=== PATIENT | female | born 1970 | race Caucasian/White ===

== ENCOUNTER 2022-02-15 22:56 | Inpatient (IN) | payer MEDICAID, SELFPAY ==
[2022-02-15 22:58] VITALS: BP 133/108; PULSE 91; RESP 18; TEMP 36.9; O2SAT 94; BMI 29.5
[2022-02-15 23:39] LABS: Basophils # 0.1 10^3/uL (0.0-0.1); Basophils % 0.7 %; Eosinophils # 0.2 10^3/uL (0.0-0.8); Eosinophils % 2.3 %; Hematocrit 39.6 % (37.0-47.0); Hemoglobin 13.4 g/dL (11.5-15.3); Lymphocytes # 3.2 10^3/uL (0.8-4.8); Lymphocytes % 38.2 %; Mean Corpuscular HGB Conc 33.8 g/dL (30.0-36.0); Mean Corpuscular Hemoglobin 33.9 pg (28.0-34.0); Mean Corpuscular Volume 100.3 fl (81-99); Mean Platelet Volume 10.1 fL (7.4-10.4); Monocytes # 0.8 10^3/uL (0.2-0.9); Monocytes % 9.6 %; Neutrophils # 4.04 10^3/uL (1.8-7.7); Nucleated Red Blood Cells % 0 %; Platelet Count 249 10^3/cmm (130-400); Red Blood Count 3.95 10^6/uL (4.1-5.3); Red Cell Distribution Width 12.6 % (12.1-15.1); White Blood Count 8.3 10^3/uL (4.0-10.0)
[2022-02-15 23:58] LABS: Chloride 103 mmol/L (98-107); Potassium 3.9 mmol/L (3.5-5.1); Sodium 139 mmol/L (136-145)
[2022-02-15 23:59] LABS: Acetaminophen < 5.0 ug/mL (10-30)
[2022-02-16 00:11] LABS: Alanine Aminotransferase 21 U/L (0-33); Albumin Level 4.8 g/dL (3.5-5.2); Alkaline Phosphatase 50 U/L (35-105); Anion Gap 14.9 (5-19); Aspartate Amino Transferase 19 U/L (0-32); Blood Urea Nitrogen 13 mg/dL (6-20); Calcium 9.3 mg/dL (8.5-10.5); Carbon Dioxide 25 mmol/L (22-29); Globulin 2.6 g/dL (1.3-4.6); Glomerular Filtration Rate 88.6 mL/min (90-130); Glucose 101 mg/dL (65-115); Osmolality Calculated 288 mOsm/kg (285-295); Total Bilirubin 0.5 mg/dL (0.15-1.2); Total Protein 7.4 g/dL (6.6-8.7)
[2022-02-16 00:13] LABS: Alcohol Level < 10 mg/dL (0-10); Salicylate < 0.3 mg/dL (3-10)
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
[2022-02-16] MEDS: nicotine 21 mg Patch 1 PATCH TRANSDERMA (01:47)
[2022-02-16] MEDS: OLANZapine 10 mg TABLET 20 MG PO (01:48)
[2022-02-16 02:00] LABS: Add Urine Microscopic? NO; Charge for UA Resulting for Rev
[2022-02-16 02:02] LABS: HCG Qualitative Urine. Negative (Negative)
[2022-02-16 02:03] LABS: Bilirubin Urine Neg (Negative); Blood Urine Neg (Negative); Glucose Urine UA Norm (Normal); Ketones Urine Negative (Negative); Leukocyte Esterase Urine Negative (Negative); Nitrate Urine Negative (Negative); Protein Urine Neg (Negative); Specific Gravity, Urine 1.015 (1.005-1.030); Urine Appearance Clear (CLEAR); Urine Color Yellow (Yellow); Urobilinogen Urine 1 mg/dL (Negative); pH Urine 6 (5-7)
[2022-02-16 02:11] LABS: Amphetamines Screen Urine Negative (Negative); Barbiturates Screen Urine Negative (Negative); Benzodiazepines Screen Urine Negative (Negative); Cocaine Screen Urine Negative (Negative); Opiate Screen Urine Negative (Negative); PCP Screen Urine Negative (Negative); THC Screen Urine Negative (Negative)
[2022-02-16 03:37] LABS: Valproic Acid Level 5.9 ug/mL (50-100)
[2022-02-16 04:54] VITALS: BP 118/65; PULSE 78; RESP 16; O2SAT 98
[2022-02-16 05:24] VITALS: PULSE 83; RESP 16; O2SAT 96
[2022-02-16] MEDS: nicotine 2 mg Gum BUCCAL ×3 (05:53→16:17)
[2022-02-16 06:00] VITALS: BP 118/65; PULSE 85; RESP 16; O2SAT 96
[2022-02-16] MEDS: fluoxetine 20 mg Capsule 40 MG PO (09:46)
[2022-02-16] MEDS: benztropine 1 mg Tablet 0.5 MG PO ×2 (09:46→17:49)
[2022-02-16] MEDS: divalproex DR 500 mg Tablet PO (09:46)
[2022-02-16] MEDS: risperiDONE 1 mg Tablet PO ×2 (09:46→17:48)
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
[2022-02-16 14:00] VITALS: BP 115/82; PULSE 105; RESP 18; TEMP 36.6; O2SAT 96
[2022-02-16] MEDS: haloperidol 5 mg Tablet PO (16:15)
[2022-02-16] MEDS: divalproex DR 500 mg Tablet 1000 MG PO (20:18)
[2022-02-16] MEDS: trazodone 100 mg Tablet PO (20:18)
[2022-02-16 20:23] VITALS: RESP 17
[2022-02-17 06:00] VITALS: BP 138/90; PULSE 102; RESP 22; TEMP 37.3; O2SAT 94
[2022-02-17] MEDS: nicotine 2 mg Gum BUCCAL ×2 (06:38→08:23)
[2022-02-17] MEDS: acetaminophen 325 mg Tablet 650 MG PO (06:38)
[2022-02-17] MEDS: hyDROXYzine 25 mg Capsule 50 MG PO (06:38)
[2022-02-17] MEDS: fluoxetine 20 mg Capsule 40 MG PO (08:21)
[2022-02-17] MEDS: risperiDONE 1 mg Tablet PO ×2 (08:21→20:26)
[2022-02-17] MEDS: divalproex DR 500 mg Tablet PO (08:21)
[2022-02-17] MEDS: benztropine 1 mg Tablet 0.5 MG PO ×2 (08:21→20:26)
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
[2022-02-17] MEDS: OLANZapine 5 mg ODT PO (09:09)
--- NOTE | 2022-02-17 09:10 | PC.NURSE ---
PRN ZYPREXA ZYDIS 5 MG GIVEN PO PER PT C/O STATED ANXIETY, SPECIFICALLY REQUESTING THE PILL THAT GOES ON YOUR TONGUE
[2022-02-17 13:50] VITALS: BP 83/58; PULSE 85; RESP 19; TEMP 36.9; O2SAT 97
[2022-02-17] MEDS: divalproex DR 500 mg Tablet 1000 MG PO (20:25)
[2022-02-17] MEDS: trazodone 100 mg Tablet PO (20:25)
[2022-02-17 20:29] VITALS: BP 103/66; PULSE 84; RESP 18; TEMP 37.3; O2SAT 93
[2022-02-18 06:00] VITALS: BP 107/75; PULSE 93; RESP 18; TEMP 37.1; O2SAT 93
[2022-02-18] MEDS: fluoxetine 20 mg Capsule 40 MG PO (08:33)
[2022-02-18] MEDS: risperiDONE 1 mg Tablet PO ×2 (08:33→21:20)
[2022-02-18] MEDS: benztropine 1 mg Tablet 0.5 MG PO ×2 (08:33→21:22)
[2022-02-18] MEDS: divalproex DR 500 mg Tablet PO (08:33)
[2022-02-18] MEDS: acetaminophen 325 mg Tablet 650 MG PO ×2 (08:37→12:47)
[2022-02-18] MEDS: OLANZapine 5 mg ODT PO ×2 (09:21→14:37)
[2022-02-18] MEDS: nicotine 2 mg Gum BUCCAL ×3 (09:31→14:52)
--- NOTE | 2022-02-18 10:08 | PC.NURSE ---
PRN MEDICATIONS PT REQUESTED TYLENOL FOR BACK AND SIDE PAIN, RATING PAIN A 10 ON THE INTENSITY SCALE. TYLENOL WAS GIVEN AT 0837. AFTER OT CAME TO PT ROOM FOR EVAL PT CAME TO NURSES DESK WITH COMPLAINTS OF ANXIETY AFTER ANSWERING SEVERAL QUESTIONS. ZYDIS WAS GIVEN AY 0921. AT 0931 NICTOINE GUM WAS GIVEN. PT IS NOW RESTING IN BED.
[2022-02-18] MEDS: haloperidol 5 mg Tablet PO (12:46)
[2022-02-18 14:00] VITALS: BP 111/74; PULSE 93; RESP 18; TEMP 36.6; O2SAT 98
[2022-02-18] MEDS: hyDROXYzine 25 mg Capsule 50 MG PO (15:15)
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
[2022-02-18 20:52] VITALS: BP 103/67; PULSE 84; RESP 16; TEMP 37.9; O2SAT 93
[2022-02-18] MEDS: ibuprofen 600 mg Tablet PO (21:20)
[2022-02-18] MEDS: divalproex DR 500 mg Tablet 1000 MG PO (21:21)
[2022-02-18] MEDS: trazodone 100 mg Tablet PO (21:26)
[2022-02-19 06:00] VITALS: TEMP 37.1
[2022-02-19] MEDS: nicotine 2 mg Gum BUCCAL ×3 (08:53→18:46)
[2022-02-19] MEDS: fluoxetine 20 mg Capsule 40 MG PO (08:54)
[2022-02-19] MEDS: divalproex DR 500 mg Tablet PO (08:54)
[2022-02-19] MEDS: acetaminophen 325 mg Tablet 650 MG PO (08:54)
[2022-02-19] MEDS: risperiDONE 1 mg Tablet PO ×2 (08:54→18:51)
[2022-02-19] MEDS: benztropine 1 mg Tablet 0.5 MG PO ×2 (08:55→18:57)
[2022-02-19] MEDS: OLANZapine 5 mg ODT PO ×2 (09:57→16:31)
[2022-02-19] MEDS: hyDROXYzine 25 mg Capsule 50 MG PO ×2 (11:51→18:49)
--- NOTE | 2022-02-19 11:51 | PC.NURSE ---
PT CONTINUES TO RETURN TO NURSES STATION REQUESTING MEDICATION FOR ANXIETY. THIS MORNING PATIENT HAS RECEIVED ZYDIS AND VISTERIL.
[2022-02-19 14:00] VITALS: BP 127/84; PULSE 90; RESP 18; TEMP 36.6; O2SAT 94
[2022-02-19 14:24] VITALS: PULSE 90; RESP 18; O2SAT 97
[2022-02-19] MEDS: albuterol 8 gm MDI 2 PUFF INHALATION (14:25)
[2022-02-19] MEDS: ibuprofen 600 mg Tablet PO (18:46)
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
[2022-02-19] MEDS: divalproex DR 500 mg Tablet 1000 MG PO (18:49)
[2022-02-19] MEDS: trazodone 50 mg Tablet PO (18:49)
[2022-02-19 20:00] VITALS: BP 107/76; PULSE 74; RESP 18; TEMP 37.1; O2SAT 94
[2022-02-20 06:00] VITALS: BP 111/75; PULSE 74; RESP 18; TEMP 36.5; O2SAT 94
[2022-02-20] MEDS: fluoxetine 20 mg Capsule 40 MG PO (08:31)
[2022-02-20] MEDS: divalproex DR 500 mg Tablet PO (08:31)
[2022-02-20] MEDS: benztropine 1 mg Tablet 0.5 MG PO ×2 (08:31→20:17)
[2022-02-20] MEDS: risperiDONE 1 mg Tablet PO ×2 (08:33→20:16)
[2022-02-20] MEDS: nicotine 2 mg Gum BUCCAL ×3 (08:37→16:24)
[2022-02-20] MEDS: OLANZapine 5 mg ODT PO ×2 (09:13→15:08)
[2022-02-20] MEDS: hyDROXYzine 25 mg Capsule 50 MG PO ×2 (11:51→20:18)
[2022-02-20 14:00] VITALS: BP 112/83; PULSE 90; RESP 16; TEMP 36.6; O2SAT 99
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
[2022-02-20] MEDS: haloperidol 5 mg Tablet PO (16:24)
[2022-02-20] MEDS: benztropine 1 mg Tablet PO (16:26)
--- NOTE | 2022-02-20 18:04 | PC.NURSE ---
PT REQUESTED MULTIPLE MEDICATION FOR ANXIETY DURING THIS SHIFT INCLUDING HALDOL, ZYDIS, AND VISTERIL. PT ALSO REQUESTED AN EXTRA DOSE OF COGENTIN FOR TARDIVE DYSKENISIA.
[2022-02-20 19:59] VITALS: BP 106/68; PULSE 83; RESP 16; TEMP 36.8; O2SAT 95
[2022-02-20] MEDS: divalproex DR 500 mg Tablet 1000 MG PO (20:19)
[2022-02-20] MEDS: doxepin 10 mg Capsule PO (22:05)
[2022-02-20 22:20] VITALS: PULSE 88; RESP 18; O2SAT 98
[2022-02-20] MEDS: albuterol 8 gm MDI 2 PUFF INHALATION (22:20)
[2022-02-21 06:00] VITALS: RESP 16
[2022-02-21] MEDS: acetaminophen 325 mg Tablet 650 MG PO ×2 (06:53→17:02)
[2022-02-21] MEDS: hyDROXYzine 25 mg Capsule 50 MG PO ×2 (06:54→21:24)
--- NOTE | 2022-02-21 06:55 | PC.NURSE ---
Medicated patient with Tylenol and Vistaril.
[2022-02-21] MEDS: divalproex DR 500 mg Tablet PO (08:41)
[2022-02-21] MEDS: benztropine 1 mg Tablet PO (08:41)
[2022-02-21] MEDS: nicotine 2 mg Gum BUCCAL ×3 (08:41→17:02)
[2022-02-21] MEDS: fluoxetine 20 mg Capsule 40 MG PO (08:41)
[2022-02-21] MEDS: risperiDONE 1 mg Tablet PO ×2 (08:41→21:29)
[2022-02-21] MEDS: haloperidol 5 mg Tablet PO (09:00)
[2022-02-21] MEDS: ibuprofen 600 mg Tablet PO (09:00)
[2022-02-21 09:02] VITALS: PULSE 95; RESP 17; O2SAT 95
[2022-02-21] MEDS: albuterol 8 gm MDI 2 PUFF INHALATION ×2 (09:05→21:29)
--- NOTE | 2022-02-21 09:44 | PC.NURSE ---
PT IN ROOM, STATES, I'VE BEEN IN HERE WAITING ON YOU. PT APPEARS ANXIOUS AND IS IMPULSIVE. PT DENIES SI/HI AND AH AT THIS TIME. PT DOES ENDORSE HEARING VOICES BUT STATES, IT'S NOT WHAT YOU THINK, I'M NOT SCHIZOPHRENIC. I HAVE BECKY AND CAN READ PEOPLES THOUGHTS. PT DOES REPORT NECK PAIN 11/06, IBUPROPHEN 600 MG WAS GIVEN ORDERED. HALDOL 5 MG WAS GIVEN ORDERED. ALL QUESTGIONS ANSWERED AND SUPPORT WAS VOICED.
[2022-02-21] MEDS: OLANZapine 5 mg ODT PO ×2 (11:19→17:03)
--- NOTE | 2022-02-21 11:20 | PC.NURSE ---
PT C/O MODERATE ANXIETY. PT HAS HAD VISTARIL PRIOR TO SHIFT AND WAS GIVEN HALDOL WELL. PT CONTINUES TO STATE SHE IS ANXIOUS DUE TO GROUP. PT WAS GIVEN MG OF ZYDIS ORDERED FOR ANXIETY AND AGITATION.
[2022-02-21 14:00] VITALS: BP 117/80; PULSE 105; RESP 18; TEMP 36.6; O2SAT 96
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
[2022-02-21] MEDS: neomycin-poly-bacitracin oint 28 gm 1 APPLIC TOPICAL (18:54)
[2022-02-21 21:20] VITALS: PULSE 96; RESP 18; O2SAT 96
[2022-02-21] MEDS: doxepin 10 mg Capsule PO (21:25)
[2022-02-21] MEDS: divalproex DR 500 mg Tablet 1000 MG PO (21:26)
[2022-02-21] MEDS: benztropine 1 mg Tablet 0.5 MG PO (21:29)
[2022-02-21 22:00] VITALS: BP 115/85; PULSE 89; RESP 18; TEMP 36.7; O2SAT 96
--- NOTE | 2022-02-22 00:20 | PC.NURSE ---
PT CAME TO NURSES STATION AND REQUESTED SOMETHING FOR ANXIETY BECAUSE I CAN'T SLEEP. PATIENT INFORMED THAT SHE REFUSED HER TRAZODONE WHICH WAS A SCHEDULED MEDICATION AND WOULD HAVE HELPED WITH THE SLEEP. PATIENT REFUSED TRAZODONE AND REQUESTED SOMETHING FOR ANXIETY. THIS NURSE EXPLAINED TO PATIENT THAT SHE HAD SOMETHING FOR ANXIETY AND IF SHE WAS HAVING TROUBLE SLEEPING, THIS NURSE WOULD BE WILLING TO GIVE HER THE SCHEDULED MEDICATION THAT SHE REFUSED, BUT NOT ADDING OTHER MEDICATIONS ON TOP OF THE VISTARIL GIVEN SINCE SHE HAD NOT TAKEN HER SCHEDULED SLEEP MEDICATION.
[2022-02-22 06:00] VITALS: BP 123/78; PULSE 78; RESP 18; TEMP 36.7; O2SAT 95
[2022-02-22] MEDS: OLANZapine 5 mg ODT PO (06:30)
[2022-02-22] MEDS: nicotine 2 mg Gum BUCCAL ×3 (06:30→16:30)
[2022-02-22 07:49] VITALS: PULSE 91; RESP 17; O2SAT 97
[2022-02-22] MEDS: albuterol 8 gm MDI 2 PUFF INHALATION ×2 (07:50→23:01)
[2022-02-22] MEDS: divalproex DR 500 mg Tablet PO (09:01)
[2022-02-22] MEDS: hyDROXYzine 25 mg Capsule 50 MG PO ×2 (09:02→16:28)
[2022-02-22] MEDS: fluoxetine 20 mg Capsule 40 MG PO (09:02)
[2022-02-22] MEDS: risperiDONE 1 mg Tablet PO ×2 (09:02→21:07)
[2022-02-22] MEDS: benztropine 1 mg Tablet 0.5 MG PO ×2 (09:02→21:06)
[2022-02-22] MEDS: acetaminophen 325 mg Tablet 650 MG PO (09:02)
--- NOTE | 2022-02-22 09:03 | PC.NURSE ---
PRN VISTARIL 50 MG GIVEN PO PER PT C/O STATED ANXIETY. NO OUTWARD S/S OF ANXIETY NOTED
[2022-02-22 14:00] VITALS: BP 106/72; PULSE 86; RESP 18; TEMP 36.8; O2SAT 97
[2022-02-22] MEDS: haloperidol 5 mg Tablet PO (14:21)
--- NOTE | 2022-02-22 14:22 | PC.NURSE ---
PRN MEDICATION PT AT NURSES STATION, STATING SHE IS VERY ANXIOUS REQUESTING HALDOL BY NAME. THIS RN REVIEWED CHART AND NOTED THAT PT HAD RECEIVED VISTARIL AND ZYDIS ALREADY. HALDOL 5 MG WAS GIVEN ORDERED.
--- NOTE | 2022-02-22 16:31 | PC.NURSE ---
PRN VISTARIL 50 MG GIVEN PO PER PT C/O STATED ANXIETY, NO OUTWARD S/S OF ANXIETY NOTED
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
[2022-02-22 20:08] VITALS: BP 125/80; PULSE 88; RESP 20; TEMP 36.2; O2SAT 97
[2022-02-22] MEDS: divalproex DR 500 mg Tablet 1000 MG PO (21:07)
[2022-02-22] MEDS: trazodone 50 mg Tablet PO (21:08)
[2022-02-22] MEDS: doxepin 10 mg Capsule PO (21:51)
[2022-02-22 21:55] VITALS: PULSE 91; RESP 18; O2SAT 94
[2022-02-23 06:00] VITALS: BP 102/65; PULSE 91; RESP 20; TEMP 37.1; O2SAT 95
[2022-02-23 08:00] VITALS: PULSE 84; RESP 16; O2SAT 94
[2022-02-23] MEDS: albuterol 8 gm MDI 2 PUFF INHALATION ×2 (08:11→21:16)
[2022-02-23] MEDS: acetaminophen 325 mg Tablet 650 MG PO (09:26)
[2022-02-23] MEDS: risperiDONE 1 mg Tablet PO ×2 (09:26→20:44)
[2022-02-23] MEDS: benztropine 1 mg Tablet 0.5 MG PO ×2 (09:27→20:44)
[2022-02-23] MEDS: fluoxetine 20 mg Capsule 40 MG PO (09:27)
[2022-02-23] MEDS: divalproex DR 500 mg Tablet PO (09:27)
[2022-02-23] MEDS: hyDROXYzine 25 mg Capsule 50 MG PO (09:27)
[2022-02-23] MEDS: nicotine 2 mg Gum BUCCAL ×3 (09:27→16:37)
--- NOTE | 2022-02-23 10:54 | PC.NURSE ---
Nursing Assessment Patient at nurse's station requesting coffee. Brought her coffee and we walked to her room for assessment. She stated she slept very well last night. She denied any auditory or visual hallucinations and suicidal or homicidal ideations. She stated her shoulder and neck were sore at a 6. She also stated her last bowel movement was last night. I noticed her left eye looked very red and irritated. When asked about it she said her eye felt dry and sore. Will be getting saline eyedrops to see if that will help.
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
--- NOTE | 2022-02-23 11:16 | PC.NURSE ---
PT REQUESTED TYLENOL FOR BACK PAIN, SOMETHING FOR ANXIETY, AND NICOTINE GUM. PT WAS GIVEN VISTERIL FOR ANXIETY.
[2022-02-23] MEDS: OLANZapine 5 mg ODT PO (12:12)
[2022-02-23 14:00] VITALS: BP 130/80; PULSE 84; RESP 17; TEMP 36.6; O2SAT 96
[2022-02-23] MEDS: haloperidol 5 mg Tablet PO (14:24)
--- NOTE | 2022-02-23 14:24 | PC.NURSE ---
Addendum entered by Antonia Street LPN 02/23/22 14:57: THIS NURSE WENT TO PT ROOM TO CHECK ON THE PT BP WAS ELEVATED. BP BETTER AT THIS TIME BEING 130/80, PT IS RESTING IN BED. PT NOW STATES SHE NEEDS MEDICATION FOR HER NECK PAIN. RATES PAIN A 9 ON THE INTENSITY SCALE. PT REQUEST IBUPROFEN. Original Note: PT STOPS THIS NURSE IN THE HALLWAY STATING SHE HAS SEVERE ANXIETY AND NEEDS SOMETHING FOR IT. PT WAS GIVEN HALDOL
[2022-02-23] MEDS: ibuprofen 600 mg Tablet PO (14:57)
[2022-02-23 20:25] VITALS: BP 113/73; PULSE 98; RESP 18; TEMP 36.8; O2SAT 93
[2022-02-23] MEDS: divalproex DR 500 mg Tablet 1000 MG PO (20:44)
[2022-02-23] MEDS: trazodone 50 mg Tablet PO (20:44)
[2022-02-23] MEDS: doxepin 10 mg Capsule PO (20:45)
[2022-02-23 21:16] VITALS: PULSE 102; RESP 16; O2SAT 97
[2022-02-24 06:00] VITALS: BP 99/57; PULSE 98; RESP 16; TEMP 36.8; O2SAT 94
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
[2022-02-24 08:00] VITALS: PULSE 96; RESP 17; O2SAT 95
[2022-02-24] MEDS: albuterol 8 gm MDI 2 PUFF INHALATION ×2 (09:14→21:32)
[2022-02-24] MEDS: acetaminophen 325 mg Tablet 650 MG PO (09:17)
[2022-02-24] MEDS: nicotine 2 mg Gum BUCCAL ×2 (09:17→20:01)
[2022-02-24] MEDS: divalproex DR 500 mg Tablet PO (09:18)
[2022-02-24] MEDS: fluoxetine 20 mg Capsule 40 MG PO (09:18)
[2022-02-24] MEDS: benztropine 1 mg Tablet PO (09:18)
[2022-02-24] MEDS: risperiDONE 1 mg Tablet PO ×2 (09:18→19:51)
[2022-02-24] MEDS: OLANZapine 5 mg ODT PO (11:09)
[2022-02-24] MEDS: hyDROXYzine 25 mg Capsule 50 MG PO ×2 (11:13→20:01)
[2022-02-24] MEDS: benztropine 1 mg Tablet 0.5 MG PO ×2 (11:36→19:52)
[2022-02-24 14:00] VITALS: BP 115/78; PULSE 92; RESP 18; TEMP 36.8; O2SAT 95
[2022-02-24] MEDS: doxepin 10 mg Capsule PO (19:52)
[2022-02-24] MEDS: divalproex DR 500 mg Tablet 1000 MG PO (19:52)
[2022-02-24] MEDS: trazodone 50 mg Tablet PO (19:52)
--- NOTE | 2022-02-24 20:02 | PC.NURSE ---
Pt requested med for anxiety, Vistaril 50mg given po.
[2022-02-24 20:58] VITALS: BP 95/65; PULSE 84; RESP 18; TEMP 37; O2SAT 95
--- NOTE | 2022-02-24 21:04 | PC.NURSE ---
during nursing assessment patient lung sounds had some wheezing i had patient cough lung sounds then became clear to auscultation. patient did state when she coughed she had some yellow sputum.
[2022-02-24 21:32] VITALS: PULSE 92; RESP 16; O2SAT 99
[2022-02-25] MEDS: nicotine 2 mg Gum BUCCAL ×4 (05:45→19:50)
[2022-02-25 06:00] VITALS: BP 110/77; PULSE 98; RESP 18; TEMP 36.9; O2SAT 95
[2022-02-25] MEDS: OLANZapine 5 mg ODT PO ×2 (06:50→12:19)
[2022-02-25 07:36] VITALS: PULSE 82; RESP 16; O2SAT 98
[2022-02-25] MEDS: albuterol 8 gm MDI 2 PUFF INHALATION ×2 (07:36→21:17)
[2022-02-25 07:37] VITALS: PULSE 89
[2022-02-25] MEDS: risperiDONE 1 mg Tablet PO ×2 (08:25→19:52)
[2022-02-25] MEDS: benztropine 1 mg Tablet 0.5 MG PO ×2 (08:25→21:00)
[2022-02-25] MEDS: fluoxetine 20 mg Capsule 40 MG PO (08:25)
[2022-02-25] MEDS: divalproex DR 500 mg Tablet PO (08:25)
[2022-02-25] MEDS: acetaminophen 325 mg Tablet 650 MG PO (08:28)
[2022-02-25] MEDS: hyDROXYzine 25 mg Capsule 50 MG PO ×2 (11:20→19:49)
--- NOTE | 2022-02-25 12:20 | PC.NURSE ---
PT CAME TO NURSES STATION AGITATED AND ANXIOUS AFTER GETTING OFF THE PHONE, REQUESTING MEDICATION FOR ANXIETY. PT WAS GIVEN ZYDIS.
[2022-02-25 14:00] VITALS: BP 109/73; PULSE 84; RESP 18; TEMP 36.6; O2SAT 97
[2022-02-25] MEDS: haloperidol 5 mg Tablet PO (15:45)
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
[2022-02-25] MEDS: divalproex DR 500 mg Tablet 1000 MG PO (19:51)
[2022-02-25] MEDS: ibuprofen 600 mg Tablet PO (19:52)
[2022-02-25] MEDS: benztropine 1 mg Tablet PO (19:53)
[2022-02-25 20:42] VITALS: BP 93/72; PULSE 77; RESP 20; TEMP 36.6; O2SAT 97
[2022-02-25 21:14] VITALS: PULSE 87; RESP 16; O2SAT 96
[2022-02-26 06:00] VITALS: BP 121/76; PULSE 79; RESP 18; TEMP 36.7; O2SAT 95
[2022-02-26] MEDS: risperiDONE 1 mg Tablet PO ×2 (08:10→21:02)
[2022-02-26] MEDS: fluoxetine 20 mg Capsule 40 MG PO (08:10)
[2022-02-26] MEDS: benztropine 1 mg Tablet 0.5 MG PO ×2 (08:10→21:02)
[2022-02-26] MEDS: hyDROXYzine 25 mg Capsule 50 MG PO ×2 (08:10→16:08)
[2022-02-26] MEDS: divalproex DR 500 mg Tablet PO (08:10)
[2022-02-26] MEDS: nicotine 2 mg Gum BUCCAL ×5 (08:12→22:47)
[2022-02-26] MEDS: acetaminophen 325 mg Tablet 650 MG PO ×2 (08:12→19:27)
[2022-02-26] MEDS: OLANZapine 5 mg ODT PO ×2 (10:45→22:47)
--- NOTE | 2022-02-26 11:47 | PC.NURSE ---
PRN PT RECEIVED TYLENOL, NICOTINE GUM, AND VISTERIL THIS AM WITH MORNING MEDS. PT LATER RECEIVED ZYDIS FOR ANXIETY AFTER SPEAKING WITH THE EYE SURGEON.
--- NOTE | 2022-02-26 13:47 | PC.OT ---
OT ORDERS RECEIVED FOR WEI EVALUATION. PATIENT INITIALLY AGREEABLE BUT AT FIRST TASK WHICH ASKED HER TO WRITE ID INFORMATION AND FREQUENCY OF SELF CARE SKILLS; SHE BECAME VERY ANXIOUS AND STATES THAT SHE WILL NOT DO THIS TODAY. REPORTS THAT SHE NEEDS HER ADHD MEDICATIONS; DOCTOR AWARE OF THIS AND PATIENT REFUSAL TO PERFORM THIS TODAY. AGREEABLE TO MY ATTEMPT TOMORROW.
[2022-02-26 14:00] VITALS: BP 95/59; PULSE 74; RESP 18; TEMP 36.6; O2SAT 96
[2022-02-26] MEDS: ibuprofen 600 mg Tablet PO ×2 (15:59→22:46)
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
[2022-02-26] MEDS: divalproex DR 500 mg Tablet 1000 MG PO (21:01)
[2022-02-26] MEDS: doxepin 10 mg Capsule PO (21:02)
[2022-02-26 21:40] VITALS: PULSE 84; RESP 16; O2SAT 97
[2022-02-26] MEDS: albuterol 8 gm MDI 2 PUFF INHALATION (21:41)
[2022-02-26 21:51] VITALS: BP 123/83; PULSE 76; RESP 16; TEMP 36.6; O2SAT 94
[2022-02-27 06:00] VITALS: BP 134/76; PULSE 78; RESP 17; TEMP 36.4; O2SAT 98
[2022-02-27] MEDS: nicotine 2 mg Gum BUCCAL ×5 (07:01→21:25)
[2022-02-27] MEDS: OLANZapine 5 mg ODT PO ×2 (07:02→10:32)
[2022-02-27] MEDS: methylphenidate 10 mg Tablet PO ×2 (08:43→12:17)
[2022-02-27] MEDS: benztropine 1 mg Tablet 0.5 MG PO ×2 (08:45→21:19)
[2022-02-27] MEDS: fluoxetine 20 mg Capsule 40 MG PO (08:46)
[2022-02-27] MEDS: divalproex DR 500 mg Tablet PO (08:46)
[2022-02-27] MEDS: risperiDONE 1 mg Tablet PO ×2 (10:36→21:18)
[2022-02-27 13:56] VITALS: PULSE 97; RESP 18; O2SAT 95
[2022-02-27] MEDS: albuterol 8 gm MDI 2 PUFF INHALATION ×2 (13:58→22:12)
[2022-02-27 14:00] VITALS: BP 119/81; PULSE 83; RESP 18; TEMP 37; O2SAT 94
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
[2022-02-27] MEDS: hyDROXYzine 25 mg Capsule 50 MG PO (16:05)
[2022-02-27] MEDS: ibuprofen 600 mg Tablet PO (18:38)
[2022-02-27 21:09] VITALS: BP 118/79; PULSE 96; RESP 17; TEMP 37.1; O2SAT 96
[2022-02-27] MEDS: divalproex DR 500 mg Tablet 1000 MG PO (21:20)
[2022-02-27] MEDS: doxepin 10 mg Capsule PO (21:20)
[2022-02-27 22:11] VITALS: PULSE 87; RESP 18; O2SAT 97
[2022-02-28 06:00] VITALS: BP 118/81; PULSE 79; RESP 16; TEMP 36.6; O2SAT 97
[2022-02-28] MEDS: albuterol 8 gm MDI 2 PUFF INHALATION (07:28)
[2022-02-28 08:00] VITALS: PULSE 76; RESP 16; O2SAT 96
[2022-02-28] MEDS: methylphenidate 10 mg Tablet 20 MG PO ×2 (09:04→13:46)
[2022-02-28] MEDS: divalproex DR 500 mg Tablet PO (09:04)
[2022-02-28] MEDS: benztropine 1 mg Tablet 0.5 MG PO ×2 (09:05→21:39)
[2022-02-28] MEDS: risperiDONE 1 mg Tablet PO ×3 (09:05→21:30)
[2022-02-28] MEDS: hyDROXYzine 25 mg Capsule 50 MG PO (09:05)
[2022-02-28] MEDS: acetaminophen 325 mg Tablet 650 MG PO (09:06)
[2022-02-28] MEDS: fluoxetine 20 mg Capsule 40 MG PO (09:06)
--- NOTE | 2022-02-28 10:47 | PC.NURSE ---
Nurse Note Patient watching tv calmly. Went to room for assessment. Patient said she slept well last night. States she has pain in her neck and head and rated them at a 7 out of a 1-10 scale. Let med nurse know patient needed something for pain. Patient denied suicidal and homicidal ideations. Patient also denied auditory and visual hallucinations. She stated she was very anxious and rated it at an 8 on a scale of 1-10.
[2022-02-28] MEDS: OLANZapine 5 mg ODT PO ×2 (11:02→18:41)
[2022-02-28] MEDS: nicotine 2 mg Gum BUCCAL ×4 (11:03→21:44)
[2022-02-28] MEDS: ibuprofen 600 mg Tablet PO (13:46)
[2022-02-28 14:00] VITALS: BP 150/89; PULSE 97; RESP 17; TEMP 37.6; O2SAT 94
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
[2022-02-28] MEDS: doxepin 10 mg Capsule PO (21:38)
[2022-02-28] MEDS: divalproex DR 500 mg Tablet 1000 MG PO (21:39)
[2022-02-28 21:57] VITALS: BP 136/76; PULSE 83; RESP 16; TEMP 36.9; O2SAT 96
[2022-03-01 06:00] VITALS: BP 111/78; PULSE 80; RESP 16; TEMP 36.6; O2SAT 96
[2022-03-01] MEDS: albuterol 8 gm MDI 2 PUFF INHALATION (07:47)
[2022-03-01 07:50] VITALS: PULSE 91; RESP 18; O2SAT 96
[2022-03-01] MEDS: risperiDONE 1 mg Tablet PO ×3 (09:14→21:00)
[2022-03-01] MEDS: benztropine 1 mg Tablet 0.5 MG PO ×2 (09:14→21:30)
[2022-03-01] MEDS: fluoxetine 20 mg Capsule PO (09:15)
[2022-03-01] MEDS: divalproex DR 500 mg Tablet PO (09:15)
[2022-03-01] MEDS: nicotine 2 mg Gum BUCCAL ×5 (09:15→21:55)
[2022-03-01] MEDS: acetaminophen 325 mg Tablet 650 MG PO (09:15)
[2022-03-01] MEDS: methylphenidate 10 mg Tablet 20 MG PO ×2 (09:16→12:26)
[2022-03-01] MEDS: hyDROXYzine 25 mg Capsule 50 MG PO (13:03)
[2022-03-01] MEDS: ibuprofen 600 mg Tablet PO (13:03)
[2022-03-01] MEDS: OLANZapine 5 mg ODT PO ×2 (13:03→21:52)
[2022-03-01 14:00] VITALS: BP 98/74; PULSE 97; RESP 17; TEMP 36.9; O2SAT 91
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
[2022-03-01] MEDS: benztropine 1 mg Tablet PO (18:28)
[2022-03-01] MEDS: haloperidol 5 mg Tablet PO (18:28)
[2022-03-01 20:18] VITALS: BP 118/88; PULSE 82; RESP 17; O2SAT 97
[2022-03-01] MEDS: divalproex DR 500 mg Tablet 1000 MG PO (20:18)
[2022-03-02 06:00] VITALS: BP 118/84; PULSE 74; RESP 18; O2SAT 98
[2022-03-02] MEDS: nicotine 2 mg Gum BUCCAL ×2 (06:50→11:45)
[2022-03-02] MEDS: acetaminophen 325 mg Tablet 650 MG PO (06:50)
[2022-03-02] MEDS: OLANZapine 5 mg ODT PO (06:50)
[2022-03-02 07:29] LABS: Valproic Acid Level 86.3 ug/mL (50-100)
[2022-03-02 08:10] VITALS: PULSE 90; RESP 16; O2SAT 98
[2022-03-02] MEDS: risperiDONE 1 mg Tablet PO ×3 (08:33→20:53)
[2022-03-02] MEDS: fluoxetine 20 mg Capsule PO (08:34)
[2022-03-02] MEDS: divalproex DR 500 mg Tablet PO (08:36)
[2022-03-02] MEDS: methylphenidate 10 mg Tablet 20 MG PO ×3 (08:41→15:57)
[2022-03-02] MEDS: albuterol 8 gm MDI 2 PUFF INHALATION ×2 (09:24→20:08)
[2022-03-02] MEDS: hyDROXYzine 25 mg Capsule 50 MG PO ×2 (11:45→22:34)
--- NOTE | 2022-03-02 11:45 | PC.NURSE ---
PRN Medication Patient states she is feeling anxious and requests something for anxiety. Vistaril 50mg PO
--- NOTE | 2022-03-02 12:15 | PC.NURSE ---
PRN Follow up Patient sitting quietly in room. Will continue to monitor
[2022-03-02 13:43] VITALS: BP 113/77; PULSE 91; RESP 18; TEMP 36.7
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
[2022-03-02 20:02] VITALS: BP 92/68; PULSE 90; RESP 17; TEMP 36.9; O2SAT 96
[2022-03-02 20:08] VITALS: PULSE 83; RESP 16; O2SAT 96
[2022-03-02] MEDS: benztropine 1 mg Tablet 0.5 MG PO (20:54)
[2022-03-02] MEDS: doxepin 10 mg Capsule PO (20:54)
[2022-03-02] MEDS: divalproex DR 500 mg Tablet 1000 MG PO (21:37)
[2022-03-02] MEDS: ibuprofen 600 mg Tablet PO (22:34)
[2022-03-03 06:00] VITALS: BP 136/82; PULSE 97; RESP 20; TEMP 36.9; O2SAT 95
[2022-03-03] MEDS: ibuprofen 600 mg Tablet PO (07:29)
[2022-03-03] MEDS: nicotine 2 mg Gum BUCCAL ×5 (07:30→19:01)
[2022-03-03] MEDS: OLANZapine 5 mg ODT PO (07:30)
[2022-03-03] MEDS: risperiDONE 1 mg Tablet PO ×3 (08:51→20:35)
[2022-03-03] MEDS: methylphenidate 10 mg Tablet 20 MG PO ×3 (08:51→14:08)
[2022-03-03] MEDS: fluoxetine 20 mg Capsule PO (08:52)
[2022-03-03] MEDS: divalproex DR 500 mg Tablet PO (08:52)
[2022-03-03] MEDS: benztropine 1 mg Tablet 0.5 MG PO ×2 (08:52→20:31)
--- NOTE | 2022-03-03 08:58 | PC.NURSE ---
Patient Behavior During morning shift assessment, when asked about auditory or visual hallucinations; patient states she sees orbs and halos floating around. States the are spirits that she sees. States she has always seen them.
[2022-03-03 09:56] VITALS: PULSE 102; RESP 20; O2SAT 95
[2022-03-03] MEDS: albuterol 8 gm MDI 2 PUFF INHALATION ×2 (09:57→20:46)
--- NOTE | 2022-03-03 10:50 | PC.NURSE ---
PRN PT REQUESTED NICOTINE GUM. NICOTINE GUM WAS GIVEN.
[2022-03-03] MEDS: acetaminophen 325 mg Tablet 650 MG PO (11:34)
[2022-03-03] MEDS: hyDROXYzine 25 mg Capsule 50 MG PO ×2 (11:34→18:57)
[2022-03-03 13:37] VITALS: BP 115/77; PULSE 93; RESP 15; TEMP 37.4; O2SAT 98
[2022-03-03] MEDS: haloperidol 5 mg Tablet PO (14:08)
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
[2022-03-03 19:30] VITALS: PULSE 102; RESP 20; O2SAT 96
[2022-03-03 20:13] VITALS: BP 130/85; PULSE 88; RESP 16; TEMP 36.7; O2SAT 96
[2022-03-03] MEDS: divalproex DR 500 mg Tablet 1000 MG PO (20:33)
[2022-03-03] MEDS: doxepin 10 mg Capsule PO (20:34)
[2022-03-04 06:00] VITALS: BP 121/81; PULSE 94; RESP 18; TEMP 37.1; O2SAT 94
[2022-03-04] MEDS: OLANZapine 5 mg ODT PO ×3 (07:48→20:43)
[2022-03-04] MEDS: nicotine 2 mg Gum BUCCAL ×5 (07:49→21:54)
[2022-03-04 08:00] VITALS: PULSE 95; RESP 18; O2SAT 96
[2022-03-04] MEDS: albuterol 8 gm MDI 2 PUFF INHALATION ×2 (08:12→20:20)
[2022-03-04] MEDS: benztropine 1 mg Tablet 0.5 MG PO ×2 (08:30→20:09)
[2022-03-04] MEDS: fluoxetine 20 mg Capsule PO (08:30)
[2022-03-04] MEDS: methylphenidate 10 mg Tablet 20 MG PO ×3 (08:30→14:01)
[2022-03-04] MEDS: divalproex DR 500 mg Tablet PO (08:30)
[2022-03-04] MEDS: risperiDONE 1 mg Tablet PO ×3 (08:30→20:10)
[2022-03-04 14:00] VITALS: BP 115/79; PULSE 102; RESP 18; TEMP 36.6; O2SAT 95
[2022-03-04] MEDS: hyDROXYzine 25 mg Capsule 50 MG PO (14:01)
[2022-03-04] MEDS: ibuprofen 600 mg Tablet PO (15:33)
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
[2022-03-04] MEDS: acetaminophen 325 mg Tablet 650 MG PO (19:00)
[2022-03-04] MEDS: doxepin 10 mg Capsule PO (20:10)
[2022-03-04] MEDS: divalproex DR 500 mg Tablet 1000 MG PO (20:11)
[2022-03-04 20:19] VITALS: PULSE 98; RESP 18; O2SAT 97
[2022-03-04 22:00] VITALS: BP 127/86; PULSE 92; RESP 20; TEMP 36.8; O2SAT 95
[2022-03-05 06:00] VITALS: BP 113/74; PULSE 79; RESP 17; TEMP 37.1; O2SAT 97
[2022-03-05] MEDS: duloxetine 30 mg Capsule PO (08:31)
[2022-03-05] MEDS: methylphenidate 10 mg Tablet 20 MG PO ×3 (08:31→14:38)
[2022-03-05] MEDS: acetaminophen 325 mg Tablet 650 MG PO ×2 (08:31→21:32)
[2022-03-05] MEDS: benztropine 1 mg Tablet 0.5 MG PO ×2 (08:31→21:30)
[2022-03-05] MEDS: risperiDONE 1 mg Tablet PO ×2 (08:31→14:38)
[2022-03-05] MEDS: hyDROXYzine 25 mg Capsule 50 MG PO ×2 (08:31→21:32)
[2022-03-05] MEDS: nicotine 2 mg Gum BUCCAL ×3 (08:32→18:36)
[2022-03-05] MEDS: divalproex DR 500 mg Tablet PO (08:32)
[2022-03-05 09:29] VITALS: PULSE 79; RESP 18; O2SAT 97
[2022-03-05] MEDS: albuterol 8 gm MDI 2 PUFF INHALATION ×2 (09:29→21:42)
[2022-03-05] MEDS: OLANZapine 5 mg ODT PO ×2 (12:17→18:36)
--- NOTE | 2022-03-05 12:21 | PC.NURSE ---
THIS NURSE PULLED PT NOON DOSE OF METHYLPHENIDATE FROM THE PIXIS. ONCE THIS NURSE WAS TO THE COMPUTER TO SCAN THE MEDICATION THIS NURSE REALIZED THERE WAS ONE TABLET OF METHYLPHENIDATE AND ONE TABLET OF RISPERDOL. PHARMACY WAS NOTIFIED.
--- NOTE | 2022-03-05 12:21 | PC.NURSE ---
DIRECTORY OPERATORLORAINE REYES APPROACHED THIS NURSE TO REPORT A DISCREPANCY IN PIXIS WITH MED METHYLPHENIDATE, ADJUSTED WITH LORAINE PRESENT AND NIKHIL MEZA CO SIGNED. NO ISSUES, SHANK CEMENTER HAND INSTRUCTED THIS NURSE DISCREPANCY WAS RESOLVED
[2022-03-05 14:00] VITALS: BP 128/88; PULSE 103; RESP 16; TEMP 37.2; O2SAT 93
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
[2022-03-05] MEDS: ibuprofen 600 mg Tablet PO (19:17)
[2022-03-05] MEDS: trazodone 50 mg Tablet PO (21:30)
[2022-03-05] MEDS: divalproex DR 500 mg Tablet 1000 MG PO (21:32)
[2022-03-05 21:41] VITALS: PULSE 98; RESP 16; O2SAT 98
[2022-03-05 22:00] VITALS: BP 129/86; PULSE 100; RESP 17; TEMP 37.3; O2SAT 96
--- NOTE | 2022-03-05 23:15 | NUR.SHIFT ---
at appx 2016 assessment done at bedside. pt calm and cooperative with bright affect. pt reports 8/10 anxiety and behavior/appearance is incongruent with this report. pt reports 2/10 depression and reports mood is good pt denies si/hi/avh at this time. reports bm today. pt took all meds as prescribed except doxepin. q15 min safety checks continued in milieu.
[2022-03-06 06:00] VITALS: BP 104/64; PULSE 77; RESP 14; TEMP 36.8; O2SAT 93
[2022-03-06] MEDS: risperiDONE 1 mg Tablet 2 MG PO ×3 (06:32→16:25)
[2022-03-06] MEDS: nicotine 2 mg Gum BUCCAL ×5 (06:33→21:02)
[2022-03-06 08:36] VITALS: PULSE 89; RESP 19; O2SAT 98
[2022-03-06] MEDS: albuterol 8 gm MDI 2 PUFF INHALATION ×2 (08:43→20:53)
[2022-03-06] MEDS: duloxetine 30 mg Capsule PO (08:58)
[2022-03-06] MEDS: divalproex DR 500 mg Tablet PO (08:58)
[2022-03-06] MEDS: methylphenidate 10 mg Tablet 20 MG PO ×3 (08:58→16:25)
[2022-03-06] MEDS: benztropine 1 mg Tablet 0.5 MG PO ×2 (08:58→21:01)
[2022-03-06] MEDS: ibuprofen 600 mg Tablet PO (10:08)
[2022-03-06] MEDS: neomycin-poly-bacitracin oint 28 gm 1 APPLIC TOPICAL (13:31)
[2022-03-06 14:00] VITALS: BP 126/86; PULSE 97; RESP 17; TEMP 37.5; O2SAT 94
[2022-03-06] MEDS: haloperidol 5 mg Tablet PO (18:04)
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
[2022-03-06 19:57] VITALS: BP 103/71; PULSE 94; RESP 12; O2SAT 95
[2022-03-06 20:53] VITALS: PULSE 80; RESP 16; O2SAT 98
[2022-03-06] MEDS: divalproex DR 500 mg Tablet 1000 MG PO (20:59)
[2022-03-06] MEDS: trazodone 50 mg Tablet PO (20:59)
[2022-03-06] MEDS: doxepin 10 mg Capsule PO (21:04)
[2022-03-07 06:00] VITALS: BP 104/63; PULSE 80; RESP 16; TEMP 37; O2SAT 94
[2022-03-07] MEDS: nicotine 2 mg Gum BUCCAL ×2 (06:42→15:12)
[2022-03-07] MEDS: acetaminophen 325 mg Tablet 650 MG PO (06:43)
[2022-03-07] MEDS: hyDROXYzine 25 mg Capsule 50 MG PO (06:43)
[2022-03-07] MEDS: benztropine 1 mg Tablet 0.5 MG PO (09:20)
[2022-03-07] MEDS: divalproex DR 500 mg Tablet PO (09:20)
[2022-03-07] MEDS: methylphenidate 10 mg Tablet 20 MG PO ×3 (09:20→15:12)
[2022-03-07] MEDS: duloxetine 30 mg Capsule PO (09:21)
[2022-03-07] MEDS: risperiDONE 1 mg Tablet 2 MG PO (09:21)
[2022-03-07] MEDS: albuterol 8 gm MDI 2 PUFF INHALATION (09:50)
[2022-03-07 09:51] VITALS: PULSE 80; RESP 16; O2SAT 94
--- NOTE | 2022-03-07 10:59 | PC.NURSE ---
Nursing Assessment Patient sitting in bed, resting. Patient states she slept very well last night and rated pain in shoulder and neck at a 3 on a 0-10 scale. Nurse administered acetaminophen. Patient denies and auditory or visual hallucinations. Also denies any homicidal or suicidal ideations. States she is not anxious this morning.
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
[2022-03-07 13:44] VITALS: BP 104/63; PULSE 80; RESP 16; TEMP 37; O2SAT 94
[2022-03-07] MEDS: ibuprofen 600 mg Tablet PO (15:28)
== END 2022-03-07 17:30 | disposition home or self-care (01) | DRG 885 ==
LOC: ER 02-16 04:15 → NP 02-16 04:39
PROVIDERS: Psychiatry & Neurology Psychiatry; Admitting Provider Psychiatry & Neurology Psychiatry; Emergency Provider Emergency Medicine; Visit Provider Psychiatry & Neurology Psychiatry
DX: F23 Brief psychotic disorder (principal); F63.9 Impulse disorder, unspecified; R45.850 Homicidal ideations; Z87.820 Personal history of traumatic brain injury; F17.210 Nicotine dependence, cigarettes, uncomplicated; Z86.59 Personal history of other mental and behavioral disorders; Z81.8 Family history of other mental and behavioral disorders; Z91.51 Personal history of suicidal behavior; Z62.810 Personal history of physical and sexual abuse in childhood
CPT/HCPCS: 80053; 80164; 80306; 80307; 81003; 81025; 85025; 94640; 97150; 97165; 99285; J3535